=== PATIENT | female | born 1945 | race Caucasian/White ===

== ENCOUNTER 2016-04-25 10:52 | Observation (INO) | payer BC ==
[~2016-04-25] VITALS: Ht 172.7 cm; Wt 76.4 kg
[2016-04-25 11:27] LABS: HEMATOCRIT 38.9 % (37-47); MEAN CELL VOLUME 90.7 fL (80-100); MEAN CORPUSCULAR HEMOGLOBIN 32.2 pg (25-34); MEAN CORPUSCULAR HGB CONC 35.5 g/dl (32-36); MEAN PLATELET VOLUME 9.9 fL (7.4-10.4); PLATELET COUNT 195 K/uL (130-400); RED BLOOD COUNT 4.29 M/uL (4.2-5.4); WHITE BLOOD COUNT 7.14 K/uL (4.8-10.8)
[2016-04-25 11:40] LABS: PARTIAL THROMBOPLASTIN RATIO 1.1; PROTHROMBIN TIME (PATIENT) 10.5 SECONDS (9.0-12.0)
--- NOTE | 2016-04-25 11:41 | DIAGNOSTIC IMAGING REPORT ---
CHEST ONE VIEW PORTABLE CLINICAL HISTORY: Chest pain. COMPARISON STUDY: Chest radiograph October 31, 2006 FINDINGS: Lung volumes are normal. There is no pneumothorax or pleural effusion. Cardiac size is normal. Mediastinal contours are normal. There is no evidence of pulmonary edema. No consolidation is identified. IMPRESSION: No acute cardiopulmonary findings. Electronically signed by: Hernan Jenkins M.D. 04/25/2016 11:39 AM
[2016-04-25 11:47] LABS: BUN/CREATININE RATIO 18.7 (10-20); CALCIUM 8.8 mg/dl (8.5-10.1); CREATININE 0.85 mg/dl (0.60-1.20); POTASSIUM 3.8 mmol/L (3.5-5.1)
[2016-04-25 11:51] LABS: CKMB/CK RATIO 0.9 (0-3.0)
[2016-04-25] MEDS ORDERED: ASPIRIN 81 MG CHEW PO STA (12:07)
[2016-04-25 12:55] VITALS: O2SAT 96; Ht 172.7 cm; Wt 76.4 kg
[2016-04-25] MEDS ORDERED: LOSA50TA6 PO (13:23)
[2016-04-25] MEDS ORDERED: DILT-113 PO (13:23)
[2016-04-25] MEDS ORDERED: MAGNESIUM HYDROXIDE SUSP 30 ML UDC PO PRN (13:45)
[2016-04-25] MEDS ORDERED: ONDANSETRON INJ 2 MG/ML 2 ML VIAL IV PRN (13:45)
[2016-04-25] MEDS ORDERED: MoRPHine SULFATE 2 MG/ML CARP IV PRN (13:45)
[2016-04-25] MEDS ORDERED: NITROGLYCERIN 0.4 MG SL PER TAB CHARGE SL PRN (13:45)
[2016-04-25] MEDS ORDERED: ALUMINUM/MAGNESIUM/SIMETH (MAALOX MAX) 30 ML UDC PO PRN (13:45)
[2016-04-25] MEDS ORDERED: LISINOPRIL 20 MG TAB PO ONE (13:54)
[2016-04-25] MEDS ORDERED: METOPROLOL TARTRATE 25 MG TAB PO ONE (13:54)
[2016-04-25 13:55] VITALS: O2SAT 96
[2016-04-25] MEDS ORDERED: METOPROLOL TARTRATE 1 MG/ML VIAL IV PRN (14:00)
[2016-04-25] MEDS ORDERED: LORAZEPAM 1 MG TAB PO PRN (14:00)
[2016-04-25] MEDS ORDERED: INFLUENZA ADMINISTRATION CHARGE ONE (14:15)
[2016-04-25] MEDS ORDERED: INFLUENZA VIRUS QUAD VACCINE 0.5 ML SYR IM. ONE (14:15)
[2016-04-25 14:19] VITALS: BP 186/93; PULSE 78; TEMP 36.8; O2SAT 96
[2016-04-25] MEDS ORDERED: IV FLUIDS COMPLETED PRN (14:45)
[2016-04-25] MEDS: NITROGLYCERIN OINT 2% 1GM PACKET EXT SCH ×2 (14:59→20:39)
--- NOTE | 2016-04-25 15:13 | History and Physical ---
History & Physical Date & Time of Service: Apr 25, 2016 at 15:08 Chief Complaint: Chest Pain, Hypertensive Urgency Primary Care Physician: Lisandra Arriaga History of Present Illness Stacy Mantilla is a 71 year old female with history of anxiety and hypertension who presents with chest pain, and hypertensive urgency. She reports the chest pain began at 2am this AM, was 6/10 severity, described as burning pain / pressure, associated with sweating / warmth, with heavy sensation , radiated to the back. She received a massage from her & was able to go back to sleep as the pain had remitted. She had a similar episode 2 weeks ago , when was at [employer], she felt a similar pain / burning with heaviness and hit her chest heavy with her packages, which seemed to resolve her pain, though she "felt she was going to ". She decided to attend today since both these episodes scared her. She reports she does not like taking medications and has not been taking her Cozaar regularly, though takes diltiazem nightly. Past Medical/Surgical History Medical Problems: (1) Anxiety Status: Chronic (2) Fibromyalgia Status: Chronic (3) Hypertension Status: Chronic Surgical Problems: (1) History of hysterectomy Status: Resolved Family History FH: heart disease Hypertension Mother from heart disease / hypertension complications Peripheral vascular disease in mom and brother Social History Smoking Status: Never Smoker Alcohol Use: drinks 1-2 glasses of wine per day Marital Status: Housing status: lives alone, lives with family Multi-Drug Resistant Organisms History of MDRO: No Allergies Coded Allergies: No Known Allergies (Unverified , 04/25/16) Home Medications Scheduled Diltiazem Hcl Ext Rel (Tiazac), 180 MG PO DAILY Losartan Potassium (Cozaar), 50 MG PO DAILY Review of Systems See HPI for pertinent positives & negatives. A total of 10 systems reviewed and were otherwise negative. Physical Exam Vital Signs Date Time Temp Pulse Resp B/P Pulse Ox O2 Delivery O2 Flow Rate FiO2 04/25/16 14:19 36.8 78 16 186/93 96 Room Air 04/25/16 13:55 69 16 174/106 96 04/25/16 13:17 69 04/25/16 12:55 96 Room Air 04/25/16 12:24 78 16 174/106 96 Room Air 04/25/16 11:08 79 04/25/16 11:03 37.1 83 20 184/98 98 Room Air 04/25/16 11:03 98 Room Air General Appearance: WD/WN, no apparent distress Head: normocephalic, atraumatic Eyes: normal inspection, PERRL ENT: hearing grossly normal Neck: supple, no JVD Respiratory/Chest: lungs clear, normal breath sounds, no respiratory distress Cardiovascular: regular rate, rhythm, no murmur, normal peripheral pulses Abdomen/GI: normal bowel sounds, non tender, soft Back: no CVA tenderness, no muscle spasm Extremities/Musculoskelatal: no calf tenderness, no pedal edema Neurologic/Psych: alert, normal mood/affect, normal reflexes, oriented x 3 Skin: no rash Diagnostics Laboratory Results Results Past 24 Hours Test 04/25/16 11:05 04/25/16 11:27 Range/Units White Blood Count 7.14 4.8-10.8 K/uL Red Blood Count 4.29 4.2-5.4 M/uL Hemoglobin 13.8 12.0-16.0 g/dL Hematocrit 38.9 37-47 % Mean Corpuscular Volume 90.7 80-100 fL Mean Corpuscular Hemoglobin 32.2 25-34 pg Mean Corpuscular Hemoglobin Concent 35.5 32-36 g/dl RDW Standard Deviation 43.7 36.4-46.3 fL RDW Coefficient of Variation 13.3 11.5-14.5 % Platelet Count 195 130-400 K/uL Mean Platelet Volume 9.9 7.4-10.4 fL Prothrombin Time 10.5 9.0-12.0 SECONDS Prothromb Time International Ratio 1.0 0.9-1.1 Activated Partial Thromboplast Time 28.9 21.0-31.0 SECONDS Partial Thromboplastin Ratio 1.1 Sodium Level 140 136-145 mmol/L Potassium Level 3.8 3.5-5.1 mmol/L Chloride Level 106 98-107 mmol/L Carbon Dioxide Level 24 21-32 mmol/L Anion Gap 10.0 3-11 mmol/L Blood Urea Nitrogen 16 7-18 mg/dl Creatinine 0.85 0.60-1.20 mg/dl Est Creatinine Clear Calc Drug Dose 65.2 ml/min Estimated GFR () 81.0 Estimated GFR (Non- 69.9 BUN/Creatinine Ratio 18.7 10-20 Random Glucose 99 70-99 mg/dl Calcium Level 8.8 8.5-10.1 mg/dl Total Bilirubin 1.0 0.2-1 mg/dl Aspartate Amino Transf (AST/SGOT) 17 15-37 U/L Alanine Aminotransferase (ALT/SGPT) 21 12-78 U/L Alkaline Phosphatase 90 45-117 U/L Total Creatine Kinase 101 26-192 U/L Creatine Kinase MB 0.9 0.5-3.6 ng/ml Creatine Kinase MB Ratio 0.9 0-3.0 Total Protein 7.5 6.4-8.2 gm/dl Albumin 3.8 3.4-5.0 gm/dl Globulin 3.7 2.5-4.0 gm/dl Albumin/Globulin Ratio 1.0 0.9-2 Hepatitis C Antibody Screen NEG NEG Bedside Troponin I 0.000 0-0.045 ng/ml Diagnostic Radiology CHEST ONE VIEW PORTABLE CLINICAL HISTORY: Chest pain. COMPARISON STUDY: Chest radiograph October 31, 2006 FINDINGS: Lung volumes are normal. There is no pneumothorax or pleural effusion. Cardiac size is normal. Mediastinal contours are normal. There is no evidence of pulmonary edema. No consolidation is identified. IMPRESSION: No acute cardiopulmonary findings. Electronically signed by: Hernan Jenkins M.D. 04/25/2016 11:39 AM Normal EKG Impression Assessment and Plan 71 yo F with anxiety, chest pain (negative trop x 2), and hypertensive urgency ( likely from poor compliance as outpatient) - differential includes GERD, ACS, anxiety, musculoskeletal. Plan Chest pain - Telemetry, cardiac monitoring, trend troponins. EKG in AM and PRN chest pain. Anxiety - Continue Ativan 1mg q4h PO Hypertensive Urgency - will start on metoprolol tartrate 25mg BID and adjust accordingly, with PRN Lopressor available as well VTE - Heparin SQ CODE STATUS: FULL CODE Dispo: Telemetry Resident Physician Supervision Note: I independently saw the patient and discussed the case with the resident and agree with the findings and plan as documented in the note. 71 y/o female with hypertensive urgency. She does not have chest pain at the moment and her EKG and initial troponin is negative, this differentiating her diagnosis from a hypertensive emergency. Nonetheless, given her two episodes of chest pain and her current BP elevation, I recommend inpatient observation. The patient explains that she does not like taking medications and admits that she does not take her blood pressure medication as prescribed. She will take the diltiazem daily, but only takes her ARB intermittently. There is a strong anxiety component, and the patient freely admits this. She is reluctant to start a daily anxiety medication for fear that it will "zommbinize " her; will continue to discuss. PLAN 1) Telemetry, trend enzymes. 2) Stop CCB, and add beta suzette. 3) Stop ARB, and add ACEI. 4) Resting echocardiogram. Documented By: Sanchez Kimble Advanced Directives Existing Advance Directive: Yes Existing Living Will: Yes Existing Power of Hand Mica Plate Layer: No Resuscitation Status FULL RESUSCITATION VTE Prophylaxis VTE Risk Assessment Done? Y/N: Yes Risk Level: Moderate Given or contraindicated: Enoxaparin (Lovenox)SQ
[2016-04-25 15:52] VITALS: BP 147/77; PULSE 72; TEMP 36.7; O2SAT 94
--- NOTE | 2016-04-25 18:26 | Medical Student: [facility] ---
Med Student History & Physical Date & Time of Service: Apr 25, 2016 at 18:06 Chief Complaint: Chest Pain, Hypertensive Urgency Primary Care Physician: Lisandra Arriaga History of Present Illness Source: patient, partner, hospital records Pt is a 71 yo female with a history of HTN who presented following an episode of 6/10 burning chest pain and heaviness that radiated to her back. This episode occurred overnight, but was not accompanied by dyspnea, n/v, fever or chills. The pain subsided on it's own, and the pt was able to fall back asleep. A similar episode occurred three weeks ago while shopping at [employer]. Pt noted that while shopping she had chest pain and heaviness and an overwhelming feeling that she was going to . The pain subsided as the patient performed "self CPR" striking herself very hard in the chest. She was subsequently able to return to shopping and had not had any further issues until last night. Pt notes that this time of year is a "high anxiety" time and that she has had a number of family stressors recently. Pt also notes that she has not been taking her Valsartan medication regularly, as she feels that it is not helping her blood pressure. Pt checks blood pressures at home and has noted they have been high in the last few weeks. Past Medical/Surgical History PMHx: HTN Fibromyalgia Anxiety Diverticulosis Hemorrhoids PSHx: Tonsillectomy Tubal Ligation Hysterectomy Pelvic Prolapse repair Family History Mother - HTN, Heart Disease, PVD Father - Asthma Brother - PVD, heart disease Social History Smoking Status: Never Smoker Alcohol Use: drinks 1-2 glasses of wine per day Marital Status: Housing status: lives with family Allergies Coded Allergies: No Known Allergies (Unverified , 04/25/16) Medications Lisinopril (Zestril), 20 MG PO DAILY Metoprolol Succinate (Toprol Xl), 50 MG PO DAILY Review of Systems Constitutional: + sweats, No chills, No fever Eyes: No diplopia, No worsening of vision Respiratory: No cough, No dyspnea on exertion, No shortness of breath Cardiovascular: + chest pain, + problem reported (heavyness) Abdomen: No diarrhea, No nausea, No pain, No vomiting Psychiatric: + anxiety Physical Exam Vital Signs (24 Hours) Date Time Temp Pulse Resp B/P Pulse Ox O2 Delivery O2 Flow Rate FiO2 04/25/16 16:54 Room Air 04/25/16 15:52 36.7 72 18 147/77 94 Room Air 04/25/16 14:19 36.8 78 16 186/93 96 Room Air 04/25/16 13:55 69 16 174/106 96 04/25/16 13:17 69 04/25/16 12:55 96 Room Air 04/25/16 12:24 78 16 174/106 96 Room Air 04/25/16 11:08 79 04/25/16 11:03 37.1 83 20 184/98 98 Room Air 04/25/16 11:03 98 Room Air General Appearance: WD/WN, no apparent distress Head: normocephalic, atraumatic Eyes: PERRL, EOMI Neck: supple, no adenopathy, no JVD Respiratory/Chest: lungs clear, normal breath sounds, no respiratory distress Cardiovascular: regular rate, rhythm, no JVD, no murmur, normal peripheral pulses Abdomen/GI: non tender, soft Neurologic/Psych: alert, normal mood/affect, normal reflexes Skin: normal color, warm/dry, no rash Diagnostics Laboratory Results Results Past 24 Hours Test 04/25/16 11:05 04/25/16 11:27 Range/Units White Blood Count 7.14 4.8-10.8 K/uL Red Blood Count 4.29 4.2-5.4 M/uL Hemoglobin 13.8 12.0-16.0 g/dL Hematocrit 38.9 37-47 % Mean Corpuscular Volume 90.7 80-100 fL Mean Corpuscular Hemoglobin 32.2 25-34 pg Mean Corpuscular Hemoglobin Concent 35.5 32-36 g/dl RDW Standard Deviation 43.7 36.4-46.3 fL RDW Coefficient of Variation 13.3 11.5-14.5 % Platelet Count 195 130-400 K/uL Mean Platelet Volume 9.9 7.4-10.4 fL Prothrombin Time 10.5 9.0-12.0 SECONDS Prothromb Time International Ratio 1.0 0.9-1.1 Activated Partial Thromboplast Time 28.9 21.0-31.0 SECONDS Partial Thromboplastin Ratio 1.1 Sodium Level 140 136-145 mmol/L Potassium Level 3.8 3.5-5.1 mmol/L Chloride Level 106 98-107 mmol/L Carbon Dioxide Level 24 21-32 mmol/L Anion Gap 10.0 3-11 mmol/L Blood Urea Nitrogen 16 7-18 mg/dl Creatinine 0.85 0.60-1.20 mg/dl Est Creatinine Clear Calc Drug Dose 65.2 ml/min Estimated GFR () 81.0 Estimated GFR (Non- 69.9 BUN/Creatinine Ratio 18.7 10-20 Random Glucose 99 70-99 mg/dl Calcium Level 8.8 8.5-10.1 mg/dl Total Bilirubin 1.0 0.2-1 mg/dl Aspartate Amino Transf (AST/SGOT) 17 15-37 U/L Alanine Aminotransferase (ALT/SGPT) 21 12-78 U/L Alkaline Phosphatase 90 45-117 U/L Total Creatine Kinase 101 26-192 U/L Creatine Kinase MB 0.9 0.5-3.6 ng/ml Creatine Kinase MB Ratio 0.9 0-3.0 Total Protein 7.5 6.4-8.2 gm/dl Albumin 3.8 3.4-5.0 gm/dl Globulin 3.7 2.5-4.0 gm/dl Albumin/Globulin Ratio 1.0 0.9-2 Hepatitis C Antibody Screen NEG NEG Bedside Troponin I 0.000 0-0.045 ng/ml Impression Assessment and Plan Pt is a 71 yo female with a hx of HTN who presents to ED following two episodes of burning chest pain and tightness. Pt was also found to be in Hypertensive Urgency. Possible etiologies include ACS, dysrhythmias, anxiety, hypertensive urgency, electrolyte abnormalities, GERD. Hypertensive Urgency 1. Stop home medications (Diltilzem and Losartan) and begin Metoprolol Tartrate 25 mg BID and Lisinopril. 2. Admit to Telemetry - continue cardiac monitoring. 3. Repeat troponin at 6 hrs. 4. Resting Echocardiogram MEDICAL STUDENT SUPERVISION NOTE I reviewed the above with the medical student. Please see separate and complete documentation in the resident note with my attestation. Level of Care Telemetry Advanced Directives Existing Advance Directive: Yes Existing Living Will: Yes Existing Power of Hydraulic Blocker: No Resuscitation Status FULL RESUSCITATION DVT Prophylaxis unfractionated heparin SQ Social Service Consult None Apply
[2016-04-25 19:55] VITALS: BP 142/83; PULSE 65; TEMP 36.4; O2SAT 96
--- NOTE | 2016-04-25 19:55 | EMERGENCY ROOM VISIT NOTE ---
History Report prepared by Diana: Isabella Hartley Under the Supervision of: Dr. Aleksander Ogden M.D. First contact with patient: 11:57 Chief Complaint: CHEST PAIN Stated Complaint: CHEST PAIN Nursing Triage Summary: Patient complains of intermittent chest pain that "comes and goes". Patient reports left shoulder pain but stated "my shoulder pain is from shuveling snow. " Reports chest pain as 4/10 and "burning sensation." Past medical history of fibromyalgia. Sandra reported " I was shopping at [employer] prior to and I started having chest pain but did not call anyone at that time so I performed my own CPR while I was in my car and my chest still hurts from it." History of Present Illness The patient is a 71 year old female who presents to the Emergency Room with complaints of intermittent chest pain for the past couple of weeks. She states that about 3 weeks ago she had an episode of chest pain. She was shopping in [employer] and had pressure and burning pain in her chest. She felt short of breath and felt like she was having a heart attack. She states that on her way out of the store "I gave myself CPR." She pounded on her chest and her pain resolved and she was able to continue shopping. The last couple of nights she has started experiencing pains again. The patient notes a burning sensation in her chest. This burning was worse last night and persisted throughout the night. She called her doctor this morning and was advised to come to the ED for further evaluation. She notes some pain in her left shoulder that she thinks is from shoveling snow. The patient rates her current pain as a 2/10. She denies shortness of breath, cough, fever, chills, abdominal pain, nausea, vomiting, pain or swelling in her legs, and trauma or injury. She has personal history of HTN and anxiety. Source of History: patient, spouse/significant other Onset: a couple of weeks ago Position: chest Symptom Intensity: 2/10 Quality: burning Timing: intermittent Modifying Factors (Relieving): other (pounding on her chest) Associated Symptoms: No SOB, No abdominal pain, No chills, No cough, No fevers, No nausea, No vomiting Review of Systems See HPI for pertinent positives & negatives. A total of 10 systems reviewed and were otherwise negative. Past Medical & Surgical Medical Problems: (1) Anxiety (2) Chest pain (3) Fibromyalgia (4) Hypertension (5) Hypertensive urgency Surgical Problems: (1) History of hysterectomy Old medical records were reviewed. Nurse's notes were reviewed and I agree with. She tells me she had a cardiac event after being on Vioxx. Family History FH: heart disease Hypertension Social History Smoking Status: Never Smoker Smokeless Tobacco Use: No Alcohol Use: occasionally Marital Status: Housing Status: lives with significant other Occupation Status: unemployed Current/Historical Medications Scheduled Diltiazem Hcl Ext Rel (Tiazac), 180 MG PO DAILY Losartan Potassium (Cozaar), 50 MG PO DAILY Allergies Coded Allergies: No Known Allergies (Unverified , 04/25/16) Physical Exam Vital Signs Date Time Temp Pulse Resp B/P Pulse Ox O2 Delivery O2 Flow Rate FiO2 04/25/16 13:17 69 04/25/16 12:55 96 Room Air 04/25/16 12:24 78 16 174/106 96 Room Air 04/25/16 11:08 79 04/25/16 11:03 37.1 83 20 184/98 98 Room Air 04/25/16 11:03 98 Room Air Physical Exam General: Well developed well nourished non-ill appearing elderly female in no acute distress, breathing comfortably on room air. Normal speech HEENT: Normal cephalic atraumatic. Pupils are equal round and reactive to light. Sclerae are anicteric. Extraocular movements are intact. Oropharynx is pink with moist mucous membranes. No swelling of the mouth lips or tongue. Neck: Supple with a midline trachea. No meningeal signs or stiffness, no JVD or bruits. No Stridor. Chest: Clear to auscultation bilaterally. No wheezes or rhonchi. No increased work of breathing. Heart: regular rate and rhythm. Abdomen: Soft nontender, nondistended without rebound guarding or rigidity. Extremities: No cyanosis clubbing or edema. No calf tenderness or assymetry Spine/Back. Non tender to palpation. No CVA tenderness Skin: Good turgor without rashes. Neurologic exam: Cranial nerves two through 12 are intact. Motor and sensation are intact and symmetrical throughout. Medical Decision & Procedures ER Provider Diagnostic Interpretation: Radiology results as stated below per my review and radiologist interpretation: CHEST ONE VIEW PORTABLE CLINICAL HISTORY: Chest pain. COMPARISON STUDY: Chest radiograph October 31, 2006 FINDINGS: Lung volumes are normal. There is no pneumothorax or pleural effusion. Cardiac size is normal. Mediastinal contours are normal. There is no evidence of pulmonary edema. No consolidation is identified. IMPRESSION: No acute cardiopulmonary findings. Electronically signed by: Hernan Jenkins M.D. 04/25/2016 11:39 AM Laboratory Results 04/25/16 11:05 04/25/16 11:05 Test 04/25/16 11:05 04/25/16 11:27 Red Blood Count 4.29 M/uL (4.2-5.4) Mean Corpuscular Volume 90.7 fL (80-100) Mean Corpuscular Hemoglobin 32.2 pg (25-34) Mean Corpuscular Hemoglobin Concent 35.5 g/dl (32-36) RDW Standard Deviation 43.7 fL (36.4-46.3) RDW Coefficient of Variation 13.3 % (11.5-14.5) Mean Platelet Volume 9.9 fL (7.4-10.4) Prothrombin Time 10.5 SECONDS (9.0-12.0) Prothromb Time International Ratio 1.0 (0.9-1.1) Activated Partial Thromboplast Time 28.9 SECONDS (21.0-31.0) Partial Thromboplastin Ratio 1.1 Anion Gap 10.0 mmol/L (3-11) Est Creatinine Clear Calc Drug Dose 65.2 ml/min Estimated GFR () 81.0 Estimated GFR (Non- 69.9 BUN/Creatinine Ratio 18.7 (10-20) Calcium Level 8.8 mg/dl (8.5-10.1) Total Bilirubin 1.0 mg/dl (0.2-1) Aspartate Amino Transf (AST/SGOT) 17 U/L (15-37) Alanine Aminotransferase (ALT/SGPT) 21 U/L (12-78) Alkaline Phosphatase 90 U/L (45-117) Total Protein 7.5 gm/dl (6.4-8.2) Albumin 3.8 gm/dl (3.4-5.0) Globulin 3.7 gm/dl (2.5-4.0) Albumin/Globulin Ratio 1.0 (0.9-2) Hepatitis C Antibody Screen NEG (NEG) Bedside Troponin I 0.000 ng/ml (0-0.045) Laboratory studies as stated above per my review. Medications Administered Medications (Trade) Dose Ordered Sig/Jaciel Route Start Time Stop Time Status Last Admin Dose Admin Aspirin (Aspirin Chew) 324 mg NOW STAT PO 04/25/16 12:07 04/25/16 12:08 DC 04/25/16 12:23 324 MG ECG Indication: chest pain Rate (beats per minute): 78 Rhythm: normal sinus Findings: no acute ischemic change, no ectopy ED Course 1157: Past medical records reviewed. The patient was evaluated in room A2, and a complete history and physical examination were performed. At this time I discussed the results and treatment plan with the patient. I answered all pertaining questions that she had. She expressed understanding and verbalized agreement. 1207: Aspirin 324 mg PO 1219: I spoke with Dr. Ho. We discussed the patients results and treatment plan. The patient will be evaluated by the [facility] for further management. Medical Decision Differential diagnoses includes acute coronary syndrome, GERD, arrhythmia, CHF, pneumonia, anxiety. This patient comes in as described above. She was placed in room A2. She is here for treatment and evaluation of intermittent chest pain. She has severe episode several days ago and at night mostly has been having some chest discomfort. It feels like a burning. She is feeling okay at present. I did give her aspirin 324 mg chewable. EKG was obtained as well as chest x-ray and multiple blood testing. Her EKG does not suggest acute coronary syndrome or arrhythmia. Chest x-ray is unremarkable and she has nothing to suggest congestive heart failure, pneumonia, or pneumothorax. Her cardiac enzymes are not elevated thus far. She has nothing to suggest liver, gallbladder, pancreas disease. I do think she needs to be admitted to rule out an acute coronary syndrome. She was happy with the plan as was her , I consulted the hospitalist group to see her for admission. Consults Time Called: 1215 Consulting Physician: Dr. Ho Returned Call: [address] Ho. We discussed the patients results and treatment plan. The patient will be evaluated by the [facility] for further management. Impression Primary Impression: Precordial chest pain Scribe Attestation The scribe's documentation has been prepared under my direction and personally reviewed by me in its entirety. I confirm that the note above accurately reflects all work, treatment, procedures, and medical decision making performed by me. Departure Information Dispostion Being Evaluated By Hospitalist Referrals Lisandra Arriaga (PCP) Patient Instructions A Signature Page, My [facility]
[2016-04-25] MEDS: ACETAMINOPHEN 325 MG TAB PO PRN (20:25)
[2016-04-25 20:58] LABS: CKMB/CK RATIO 1.2 (0-3.0)
[2016-04-25] MEDS ORDERED: ENOXAPARIN 40 MG/0.4 ML SYR SC SCH (21:00)
[2016-04-25] MEDS: METOPROLOL TARTRATE 25 MG TAB PO SCH (21:05)
[2016-04-25 21:36] VITALS: BP 135/77; PULSE 103
[2016-04-26] VITALS: BP 136/84; PULSE 57; TEMP 36.7; O2SAT 98
[2016-04-26] MEDS: NITROGLYCERIN OINT 2% 1GM PACKET EXT SCH ×2 (02:13→08:59)
[2016-04-26 02:41] LABS: CKMB/CK RATIO 1.3 (0-3.0)
[2016-04-26 04:00] VITALS: BP 133/78; PULSE 68; TEMP 36.7; O2SAT 98
[2016-04-26 08:05] VITALS: BP 157/86; PULSE 76; TEMP 36.6; O2SAT 97
[2016-04-26] MEDS: ACETAMINOPHEN 325 MG TAB PO PRN (08:19)
[2016-04-26 08:47] LABS: CKMB/CK RATIO 1.4 (0-3.0)
[2016-04-26 08:56] LABS: BASO % 0.3 %; BASO ABS # 0.03 K/uL (0-0.2); COMPLETE YES; EOS % 1.8 %; IG% 0.3 %; LYMPH % 21.4 %; LYMPH ABS # 1.92 K/uL (1.2-3.4); MEAN CELL VOLUME 91.5 fL (80-100); MEAN CORPUSCULAR HEMOGLOBIN 31.9 pg (25-34); MEAN CORPUSCULAR HGB CONC 34.9 g/dl (32-36); MEAN PLATELET VOLUME 10.2 fL (7.4-10.4); MONO % 5.1 %; NEUT % 71.1 %; PLATELET COUNT 204 K/uL (130-400); RED BLOOD COUNT 4.26 M/uL (4.2-5.4); WHITE BLOOD COUNT 8.96 K/uL (4.8-10.8)
[2016-04-26] MEDS: METOPROLOL TARTRATE 25 MG TAB PO SCH (08:59)
[2016-04-26] MEDS ORDERED: LISINOPRIL 20 MG TAB PO SCH (09:00)
[2016-04-26] MEDS ORDERED: LOSARTAN POTASSIUM 50 MG TAB PO SCH (09:00)
[2016-04-26] MEDS ORDERED: DILTIAZEM HCL (TIAzac) 180 MG CAPCR PO SCH (09:00)
[2016-04-26 09:24] LABS: BUN/CREATININE RATIO 17.7 (10-20); CALCIUM 9.3 mg/dl (8.5-10.1); CREATININE 0.96 mg/dl (0.60-1.20); POTASSIUM 3.6 mmol/L (3.5-5.1)
--- NOTE | 2016-04-26 10:55 | Discharge Instructions ---
Discharge Instructions Admission Reason for Admission: Chest Pain, Hypertensive Urgency Discharge Discharge Diagnosis / Problem: Hypertension Discharge Goals Goal(s): Improve disease control Activity Recommendations Activity Limitations: resume your previous activity Lifting Limitations: none . Instructions / Follow-Up Instructions / Follow-Up Follow up with your PCP within a week Get a blood pressure cuff and check your BP 2-3 times per day, and keep a log. It is VERY important to keep taking your blood pressure medications are prescribed. Continue the regimen of TOPROL XL 50mg in the MORNING, and take LISINOPRIL 20mg daily (Either in the morning or at night). High blood pressure is a big risk factor for heart attack and stroke! Current Hospital Diet Patient's current hospital diet: Regular Diet Discharge Diet Recommended Diet: AHA Diet (Heart Healthy) Pending Studies Studies pending at discharge: no Medical Emergencies . Who to Call and When: Medical Emergencies: If at any time you feel your situation is an emergency, please call 911 immediately. . Non-Emergent Contact Non-Emergency issues call your: Primary Care Provider . . "Provider Documentation" section prepared by Sienna Archer. VTE Core Measure Inpt VTE Proph given/why not?: Enoxaparin (Lovenox)SQ
[2016-04-26] MEDS ORDERED: METO-217 PO (10:56)
[2016-04-26] MEDS ORDERED: LISI-725 PO (10:56)
--- NOTE | 2016-04-26 10:56 | ECHOCARDIOGRAM REPORT ---
*NOTICE TO RECEIVING LIBERTARIAN AGENCY This information is strictly Confidential and protected under [place] law. [place] law prohibits you from making any further disclosure of this information unless further disclosure is expressly permitted by the written consent of the person to whom it pertains or is authorized by law. A general authorization for the release of medical or other information is not sufficient for this purpose. Hospital accepts no responsibility if the information is made available to any other person, INCLUDING THE PATIENT. Interpretation Summary * Name: SAÚL VU Study Date: 04/26/2016 08:57 AM BP: 157/86 mmHg * Patient Location: [facility] HR: 76 * : 1945 (M/d/yyyy) Gender: Female Height: 66 in * Age: 71 yrs Ethnicity: CA Weight: 162 lb * Ordering Physician: Sienna Archer * Referring Physician: SUGAR * Performed By: Tracy Amato RDCS * * Reason For Study: CHEST PAIN * BSA: 1.8 m2 * History: CHEST PAIN * -- Conclusions -- * 1. Normal LV size, moderate concentric LVH, mild left atrial enlargement. * 2. Normal LV systolic function. LVEF 60-65%. No regional wall motion abnormalities. * 3. Normal RV size and function. * 4. Grade I diastolic dysfunction. * 5. No significant valvular pathology * 6. Normal estimated RA and PA pressures * 7. Compared with prior study on 12/05/2008: No significant changes. Procedure Details * A complete two-dimensional transthoracic echocardiogram was performed (2D, M-mode, Doppler and color flow Doppler). Left Ventricle * The left ventricle is grossly normal size. * There is moderate concentric left ventricular hypertrophy. * Ejection Fraction = 60-65%. * No regional wall motion abnormalities noted. Right Ventricle * The right ventricle is grossly normal size. * The right ventricular systolic function is normal as assessed by tricuspid annular plane systolic excursion (TAPSE) (normal >1.5 cm). Atria * The left atrium is mildly dilated. * Right atrial size is normal. * No ASD detected; PFO is not assessed. Mitral Valve * The mitral valve is grossly normal. * There is no mitral valve stenosis. * Significant mitral regurgitation is absent. Tricuspid Valve * The tricuspid valve is not well visualized. * There is no tricuspid stenosis. * There is trace tricuspid regurgitation. Aortic Valve * The aortic valve opens well. * The aortic valve is not well visualized. * No hemodynamically significant valvular aortic stenosis. * There is no significant aortic regurgitation. Pulmonic Valve * The pulmonary valve is inadequately visualized, but the Doppler data is adequate for interpretation. * There is no pulmonic valvular stenosis. * There is no pulmonic valvular regurgitation. Great Vessels * The aortic root and proximal ascending aorta are normal sized. Pericardium/Pleural * There is no pericardial effusion. Great Vessels * There is no evidence of pulmonary hypertension. The PA systolic pressure is less than 36 mmHg. * Normal inferior vena cava size and collapsability with sniff indicates a normal right atrial pressure of 3 mmHg Left Ventricular Diastolic Function * Grade I diastolic dysfunction, (abnormal relaxation pattern). MMode 2D Measurements and Calculations IVSd 1.5 cm IVSs 1.7 cm LVIDd 3.9 cm LVIDs 2.5 cm LVPWd 1.4 cm IVS/LVPW 1.1 FS 35.8 % EDV(Teich) 64.0 ml ESV(Teich) 21.7 ml EF(Teich) 66.1 % EDV(cubed) 57.1 ml ESV(cubed) 15.1 ml EF(cubed) 73.6 % % IVS thick 14.9 % LV mass(C)d 200.8 grams LV mass(C)dI 109.8 grams/m\S\2 SV(Teich) 42.3 ml SI(Teich) 23.1 ml/m\S\2 SV(cubed) 42.0 ml SI(cubed) 23.0 ml/m\S\2 LVAd ap4 30.7 cm\S\2 LVLd ap4 9.0 cm EDV(MOD-sp4) 88.1 ml EDV(sp4-el) 89.4 ml LVAs ap4 17.6 cm\S\2 LVLs ap4 7.4 cm ESV(MOD-sp4) 39.0 ml ESV(sp4-el) 35.8 ml EF(MOD-sp4) 55.7 % EF(sp4-el) 60.0 % LVAd ap2 26.3 cm\S\2 LVLd ap2 8.7 cm EDV(MOD-sp2) 67.8 ml EDV(sp2-el) 67.3 ml LVAs ap2 15.2 cm\S\2 LVLs ap2 7.3 cm ESV(MOD-sp2) 31.5 ml ESV(sp2-el) 26.9 ml EF(MOD-sp2) 53.6 % EF(sp2-el) 60.0 % LVLd %diff -3.03 % EDV(MOD-bp) 78.9 ml LVLs %diff -0.80 % ESV(MOD-bp) 35.1 ml EF(MOD-bp) 55.5 % SV(MOD-sp4) 49.1 ml SI(MOD-sp4) 26.8 ml/m\S\2 SV(MOD-sp2) 36.3 ml SI(MOD-sp2) 19.9 ml/m\S\2 SV(MOD-bp) 43.8 ml SI(MOD-bp) 23.9 ml/m\S\2 SV(sp4-el) 53.6 ml SI(sp4-el) 29.3 ml/m\S\2 SV(sp2-el) 40.4 ml SI(sp2-el) 22.1 ml/m\S\2 Doppler Measurements and Calculations MV E max evelyn 66.0 cm/sec MV A max evelyn 103.3 cm/sec MV E/A 0.64 MV dec time 0.26 sec Ao V2 max 147.2 cm/sec Ao max PG 8.7 mmHg Ao max PG (full) 4.4 mmHg LV V1 max PG 4.3 mmHg LV V1 max 103.3 cm/sec TR max evelyn 234.1 cm/sec
[2016-04-26 11:07] VITALS: BP 133/78; PULSE 68; TEMP 36.7; O2SAT 98
--- NOTE | 2016-04-26 11:41 | Discharge Summary ---
Discharge Summary Admission Date: Apr 25, 2016 at 13:36 Discharge Date: Apr 26, 2016 Discharge Disposition: Home Principal Diagnosis: Hypertension, Anxiety Procedures: ECHO 04/26/16 Interpretation Summary * Name: STACY MANTILLA Study Date: 04/26/2016 08:57 AM BP: 157/86 mmHg * Patient Location: [facility] HR: 76 * : 1945 (M/d/yyyy) Gender: Female Height: 66 in * Age: 71 yrs Ethnicity: [place] Weight: 162 lb * Ordering Physician: Sienna Archer * Referring Physician: SUGAR * Performed By: Tracy Amato RDCS * * Reason For Study: CHEST PAIN * BSA: 1.8 m2 * History: CHEST PAIN * -- Conclusions -- * 1. Normal LV size, moderate concentric LVH, mild left atrial enlargement. * 2. Normal LV systolic function. LVEF 60-65%. No regional wall motion abnormalities. * 3. Normal RV size and function. * 4. Grade I diastolic dysfunction. * 5. No significant valvular pathology * 6. Normal estimated RA and PA pressures * 7. Compared with prior study on 12/05/2008: No significant changes. (Sienna Archer .MD) Medication Reconciliation New Medications: Lisinopril (Zestril) 20 Mg Tab 20 MG PO DAILY for 30 Days, #30 TAB Metoprolol Succinate (Toprol Xl) 50 Mg Tabcr 50 MG PO DAILY for 30 Days, #30 TAB Discontinued Medications: Diltiazem Hcl Ext Rel (Tiazac) 180 Mg Capcr 180 MG PO DAILY Losartan Potassium (Cozaar) 50 Mg Tab 50 MG PO DAILY Discharge Exam Review of Systems: Constitutional: No chills, No fever, No sweats, No weakness, No weight loss Eyes: No worsening of vision Respiratory: No cough, No dyspnea at rest, No dyspnea on exertion, No shortness of breath, No sputum, No wheezing Cardiovascular: No chest pain, No orthopnea Abdomen: No nausea, No pain, No vomiting Musculoskeletal: No joint pain Genitourinary - Female: No dysuria, No urinary frequency, No urinary incontinence, No urinary retention, No urinary urgency Neurologic: No memory loss, No paralysis, No weakness Psychiatric: + anxiety, No depression symptoms, No insomnia Endocrine: No excessive thirst, No excessive urination, No fatigue Hematologic / Lymphatic: No abnormal bleeding/bruising Integumentary: No rash Physical Exam: General Appearance: WD/WN, no apparent distress Eyes: normal inspection, PERRL ENT: hearing grossly normal Neck: supple, no JVD Respiratory/Chest: chest non-tender, lungs clear, normal breath sounds, no respiratory distress Cardiovascular: regular rate, rhythm, no murmur, normal peripheral pulses Abdomen / GI: normal bowel sounds, non tender, soft Extremities: no calf tenderness, no pedal edema Neurologic/Psychiatric: alert, normal mood/affect, normal reflexes, oriented x 3 Skin: no rash Lymphatic: no adenopathy (Sienna Archer MD) Hospital Course HPI: Stacy Mantilla is a 71 year old female with history of anxiety and hypertension who presents with chest pain, and hypertensive urgency. She reports the chest pain began at 2am this AM, was 6/10 severity, described as burning pain / pressure, associated with sweating / warmth, with heavy sensation , radiated to the back. She received a massage from her & was able to go back to sleep as the pain had remitted. She had a similar episode 2 weeks ago , when was at [facility], she felt a similar pain / burning with heaviness and hit her chest heavy with her packages, which seemed to resolve her pain, though she "felt she was going to ". She decided to attend today since both these episodes scared her. She reports she does not like taking medications and has not been taking her Cozaar regularly, though takes diltiazem nightly. HOSPITAL COURSE: 71 yo F with anxiety, chest pain (negative trop x 2), and hypertensive urgency ( likely from poor compliance as outpatient) - differential includes GERD, ACS, anxiety, musculoskeletal. Chest pain - Telemetry, cardiac monitoring, trend troponins (negative x3). EKG in AM- NSR. ECHO completed, as above. Anxiety - Continue Ativan 1mg q4h PO Hypertensive Urgency - will start on metoprolol tartrate 25mg BID and adjust accordingly, with PRN Lopressor available as well. BP responded well, was 130 - 140 systolic. Will d/c on Toprol XL 50mg, Lisinopril 20mg daily. VTE - Heparin SQ CODE STATUS: FULL CODE Dispo: Telemetry Total Time Spent: Greater than 30 minutes This includes examination of the patient, discharge planning, medication reconciliation, and communication with other providers. (Sienna Archer MD) Resident Physician Supervision Note: I was present with Dr. Archer during the history and exam. I discussed the case with the resident and agree with the findings and plan as documented in the note. Any exceptions or clarifications are listed here: Patient without recurrent symptoms. Troponin negative x 3 and initial and repeat EKG this morning without ST/T changes. Resting echocardiogram without wall motion abnormality. Blood pressure improved, although it is noted she had NTG paste as well as above medications. Agree with Toprol XL and Lisinopril and PCP follow up in one week to check blood pressure. I reviewed all of the above with the patient and her and emphasized the risk of non compliance with blood pressure medications. Documented By: Sanchez Kimble (Sanchez Kimble D.OPrimo) Discharge Instructions Please refer to the electronic Patient Visit Report (Discharge Instructions) for additional information. (Sienna Archer MD) Follow-Up With PCP in 1-2 weeks (Sienna Archer MD) Additional Copies To Sanchez Kimble D.O.
--- NOTE | 2016-04-26 13:28 | Medical Student: [facility] ---
Med Student Progress Note Date of Service Apr 26, 2016. Subjective Pt evaluation today including: conversation w/ patient, physical exam, chart review, lab review, review of studies Pain: resolved. PO Intake: normal diet. Voiding: no voiding problems Pt is a 71 yo female who presented following two episodes of chest pain, and was found to be in hypertensive urgency. Pt notes that she if feeling better today, denies chest pain. Notes that the nitroglycerin resulted in a headache. Denies fever, chills, dyspnea, chest pain or abdominal pain. Review of Systems Constitutional: No chills, No fever, No sweats Respiratory: No cough, No dyspnea on exertion, No shortness of breath Cardiac: No chest pain, No palpitations Abdomen: No nausea, No pain, No vomiting Objective Vital Signs Date Time Temp Pulse Resp B/P Pulse Ox O2 Delivery O2 Flow Rate FiO2 04/26/16 11:07 36.7 68 18 98 Room Air 04/26/16 08:05 36.6 76 20 157/86 97 Room Air 04/26/16 08:00 Room Air 99 04/26/16 04:00 36.7 68 18 133/78 98 Room Air 04/26/16 04:00 Room Air 98 04/26/16 00:01 Room Air 98 04/26/16 00:00 36.7 57 20 136/84 98 Room Air 04/25/16 21:36 103 135/77 04/25/16 20:00 Room Air 96 04/25/16 19:55 36.4 65 18 142/83 96 Room Air 04/25/16 16:54 Room Air 04/25/16 15:52 36.7 72 18 147/77 94 Room Air 04/25/16 14:19 36.8 78 16 186/93 96 Room Air 04/25/16 13:55 69 16 174/106 96 Physical Exam General Appearance: WD/WN, no apparent distress ENT: hearing grossly normal Neck: supple, no JVD Respiratory/Chest: lungs clear, normal breath sounds, no respiratory distress Cardiovascular: regular rate, rhythm, no edema, no JVD, no murmur Abdomen: non tender, soft Neurologic/Psychiatric: alert, normal mood/affect Laboratory Results Last 24 Hours Test 04/25/16 19:49 04/26/16 01:40 04/26/16 07:50 04/26/16 08:20 Total Creatine Kinase 93 U/L 90 U/L 88 U/L Creatine Kinase MB 1.1 ng/ml 1.2 ng/ml 1.2 ng/ml Creatine Kinase MB Ratio 1.2 1.3 1.4 Troponin I < 0.015 ng/ml < 0.015 ng/ml < 0.015 ng/ml White Blood Count 8.96 K/uL Red Blood Count 4.26 M/uL Hemoglobin 13.6 g/dL Hematocrit 39.0 % Mean Corpuscular Volume 91.5 fL Mean Corpuscular Hemoglobin 31.9 pg Mean Corpuscular Hemoglobin Concent 34.9 g/dl Platelet Count 204 K/uL Mean Platelet Volume 10.2 fL Neutrophils (%) (Auto) 71.1 % Lymphocytes (%) (Auto) 21.4 % Monocytes (%) (Auto) 5.1 % Eosinophils (%) (Auto) 1.8 % Basophils (%) (Auto) 0.3 % Neutrophils # (Auto) 6.36 K/uL Lymphocytes # (Auto) 1.92 K/uL Monocytes # (Auto) 0.46 K/uL Eosinophils # (Auto) 0.16 K/uL Basophils # (Auto) 0.03 K/uL RDW Standard Deviation 44.2 fL RDW Coefficient of Variation 13.5 % Immature Granulocyte % (Auto) 0.3 % Immature Granulocyte # (Auto) 0.03 K/uL Sodium Level 142 mmol/L Potassium Level 3.6 mmol/L Chloride Level 106 mmol/L Carbon Dioxide Level 27 mmol/L Anion Gap 9.0 mmol/L Blood Urea Nitrogen 17 mg/dl Creatinine 0.96 mg/dl Est Creatinine Clear Calc Drug Dose 89.7 ml/min Estimated GFR () 69.9 Estimated GFR (Non- 60.3 BUN/Creatinine Ratio 17.7 Random Glucose 139 mg/dl Calcium Level 9.3 mg/dl Total Bilirubin 0.6 mg/dl Aspartate Amino Transf (AST/SGOT) 15 U/L Alanine Aminotransferase (ALT/SGPT) 21 U/L Alkaline Phosphatase 88 U/L Total Protein 7.5 gm/dl Albumin 3.8 gm/dl Globulin 3.7 gm/dl Albumin/Globulin Ratio 1.0 Assessment and Plan Assessment and Plan: Pt is 71 yo female who presented with non-specific chest pain and was admitted for observation and treatment of hypertensive urgency. Pt's blood pressure is now controlled at 133/78, down from 185/98 on admission. Lisinopril 20mg qAM, Metoprolol Tartrate 25 mg bid. Morning EKG was normal - no change from EKG at admission. Troponin levels unchanged from 0 at admission. Resting Echocardiogram normal. Pt ready for discharge - need new prescriptions for home meds as both BP meds were changed. Also needs to set up primary care f/u. Pt to see Dr. Archer. MEDICAL STUDENT SUPERVISION NOTE I saw this patient with the medical student and the resident physician. Please see the resident note along with my attestation of the same date. Discharge planning: home
== END 2016-04-26 11:59 | disposition home or self-care (01) ==
LOC: ENRESERVTM → ENRESERVDT → C.EDB 10:54 → C.2T 13:36
PROVIDERS: ADMIT Family Medicine; ATTEND Family Medicine
DX: I16.0 Hypertensive urgency (principal); R07.9 Chest pain, unspecified; F41.9 Anxiety disorder, unspecified; M79.7 Fibromyalgia; Z90.710 Acquired absence of both cervix and uterus; Z82.49 Family history of ischemic heart disease and other diseases of the circulatory system

== ENCOUNTER → 2016-05-24 | Outpatient (CLI) | payer BC ==
[~2016-05-24] MED LIST: LISI-725 PO; METO-217 PO
--- NOTE | 2016-05-30 10:09 | CODING QUERY MEDICAL NECESSITY ---
SUPPORTING DIAGNOSIS NEEDED A supporting diagnosis is required for the test/procedure performed on this patient in order for us to be reimbursed by the patient's insurance. Please provide a supporting diagnosis for the following test/procedure listed below next to the test name along with your signature. *If there is no additional diagnosis for this patient that would support the following test/procedure please document that below next to the test/procedure. Test(s)/Procedure(s) that require a supporting diagnosis: * BONE DENSITY STUDY DIAGNOSIS: * DOS: 05/24/16 Provider Signature: Date: Thank you Ann Marie Bl[facility] Health Information Management Once completed, please kindly fax back to [phone] For questions please call [phone]
== END | disposition home or self-care (01) ==
LOC: C.MAMM 07:59
PROVIDERS: ATTEND Family Medicine Hospice and Palliative Medicine
DX: Z13.820 Encounter for screening for osteoporosis (principal)